=== PATIENT | female | born 1940 | race Caucasian/White ===

== ENCOUNTER 2020-02-01 10:05 | Outpatient (CLI) | payer MEDICARE, SELFPAY ==
--- NOTE | 2020-02-01 10:20 | XR_ITS ---
WS: [id number] PROCEDURE: XR chest 2V* [id number] CLINICAL INFORMATION: COUGH COMPARISON: March 31, 2017 FINDINGS: Heart: Normal cardiac silhouette. Sternotomy. Lungs: Moderate chronic emphysematous changes. No acute pulmonary infiltrates. No pleural fluid. Bones: Mild thoracic kyphosis. Hypertrophic changes thoracic spine. XR/XR chest 2V* [id number] IMPRESSION: 1. Moderate chronic emphysematous changes. 2. No acute pulmonary infiltrates. 3. No acute chest findings.
== END 2020-02-01 10:06 | disposition home or self-care (01) ==
PROVIDERS: Family Provider Nurse Practitioner Family; PCP Nurse Practitioner Family; Visit Provider Nurse Practitioner Family
DX: R05 Cough (principal)
CPT/HCPCS: 71046

== ENCOUNTER 2020-03-24 07:57 | Outpatient (CLI) | payer MEDICARE, SELFPAY ==
--- NOTE | 2020-03-24 08:02 | CT_ITS ---
WS: [id number] CT CHEST TECHNIQUE: Contrast enhanced CT of the chest with coronal and sagittal reformatted images. CLINICAL INFORMATION: THYMOMA COMPARISON: CT , 9 , August 29, 2017. DLP: 597.[address] scans at [facility] use at least one of these dose optimization techniques: automat ed exposure control; mA and/or kV adjustment per patient size (includes targeted exams where dose is matched to clinical indication); or iterative reconstruction. FINDINGS: Postoperative changes sternotomy with thymoma resection. No evidence of residual or recurrent tumor. Mild chronic emphysematous changes. No acute pulmonary infiltrates. No focal consolidation. No pleura l fluid. Long-term stability of several right middle lobe subcentimeter nodules. No new suspicious pa renchymal abnormalities. Mild aortic calcification. Normal caliber thoracic aorta. Proximal main pulmonary arteries are normal . No mediastinal or hilar lymphadenopathy. Small esophageal hiatal hernia. Prior sternotomy. Prior po stoperative changes right thyroidectomy. Left thyroid nodule measuring 12 mm. No axillary lymphadenop athy. Adrenal glands are normal. Normal visualized thoracic spine. CT/CT chest w con* [id number] IMPRESSION: 1. Prior postoperative changes sternotomy with resection of the previously amelie cribed anterior superior mediastinal mass. No evidence of residual or recurrent disease. 2. Mild chronic emphysematous changes. No acute pulmonary infiltrates. 3. Prior right thyroidectomy. 4. Stable long-term stability of a few right middle lobe nodules. 5. Left thyroid nodule measuring 12 mm. This can be followed up with allan elias
[2020-03-24 08:59] LABS: Basophils # 0.1 10^3/uL (0.0-0.1); Basophils % 0.7 %; Eosinophils # 0.2 10^3/uL (0.0-0.8); Eosinophils % 1.9 %; Hematocrit 42.4 % (37.0-47.0); Hemoglobin 13.3 g/dL (11.5-15.3); Lymphocytes # 1.2 10^3/uL (0.8-4.8); Lymphocytes % 13.6 %; Mean Corpuscular HGB Conc 31.4 g/dL (30.0-36.0); Mean Corpuscular Hemoglobin 31.5 pg (28.0-34.0); Mean Corpuscular Volume 100.5 fL (81-99); Mean Platelet Volume 10.4 fL (7.4-10.4); Monocytes # 0.6 10^3/uL (0.2-0.9); Monocytes % 6.2 %; Neutrophils # 7.03 10^3/uL (1.8-7.7); Neutrophils % 77.3 %; Nucleated Red Blood Cells % 0 %; Platelet Count 200 10^3/cmm (130-400); Red Blood Count 4.22 10^6/uL (4.1-5.3); Red Cell Distribution Width 12.6 % (12.1-15.1); White Blood Count 9.1 10^3/uL (4.0-10.0)
[2020-03-24 09:10] LABS: Alanine Aminotransferase 13 U/L (0-33); Alkaline Phosphatase 87 IU/L (35-105); Anion Gap 16.1 (5-19); Aspartate Amino Transferase 15 U/L (0-32); Blood Urea Nitrogen 15 mg/dL (8-23); Calcium 9.6 mg/dL (8.5-10.5); Carbon Dioxide 26 mmol/L (22-29); Chloride 104 mmol/L (98-107); Globulin 2.7 g/dL (1.3-4.6); Glucose 126 mg/dL (65-115); Lactate Dehydrogenase 145 U/L (135-214); Osmolality Calculated 296 mOsm/kg (285-295); Potassium 4.1 mmol/L (3.5-5.1); Sodium 142 mmol/L (136-145); Total Bilirubin 0.8 mg/dL (0.15-1.2); Total Protein 6.7 g/dL (6.6-8.7)
[2020-03-24] MEDS: iodixanol 320 mg/mL 100mL Btl IV (09:53)
== END 2020-03-24 07:58 | disposition home or self-care (01) ==
LOC: CT 07:59
PROVIDERS: PCP Nurse Practitioner; Visit Provider Internal Medicine Medical Oncology
DX: C37 Malignant neoplasm of thymus (principal); E04.1 Nontoxic single thyroid nodule; E89.0 Postprocedural hypothyroidism
CPT/HCPCS: 71260; 80053; 83615; 85025

== ENCOUNTER 2020-03-24 11:43 | Emergency (ER) | payer MEDICARE, SELFPAY ==
[2020-03-24 11:49] VITALS: BP 176/88; PULSE 78; RESP 18; TEMP 36.3; O2SAT 95; BMI 36.6
--- NOTE | 2020-03-24 12:21 | XR_ITS ---
WS: [id number] Left hip, AP and frog-leg views, 03/24/2020 Clinical Data: left hip pain Comparison: Left hip, 02/24/2020. Findings: No fractures or dislocations are seen. The hip joint is intact. The soft tissues are not remarkable. The adjacent pelvis is normal. There is a small acetabular lip. Contrast material can be seen in the left ureter and the bladder fro m a recent CT chest. XR/XR hip LT 2-3V wo/w pel* [id number] Impression: Minimal osteoarthritis.
--- NOTE | 2020-03-24 12:21 | USCV_ITS ---
Nohelia Saxena Age: 79 Gender: F : 1940 Exam Date: 03/24/2020 12:40 Ordering Phys: Doretha Phillips MD [facility] [place] Technologist: Tung Rosales Exam Location: [facility] [place] Indication: LT LEG PAIN HISTORY: Lower extremity pain. PROCEDURES: Venous duplex imaging was performed in only the left lower extremity. The following venous structures were evaluated: common femoral vein, profunda vein, proximal portion of the greater saphenous vein, superficial femoral vein, and the popliteal vein. In addition, the posterior tibial and peroneal trunk were evaluated. On the left side, the common femoral, superficial femoral, profunda femoral, popliteal, posterior tibial, greater saphenous veins, and the peroneal trunk were identified and interrogated in the standard fashion. These veins were found to be easily compressible with spontaneous blood flow. No evidence of insufficiency or thrombus noted. FINDINGS: Normal 2-D Doppler and augmentation and compressibility throughout the lower extremity venous structures. Additional imaging through the proximal calf veins also reveals no thrombus. Limited evaluation of the greater saphenous vein is patent with no thrombus.. CONCLUSIONS No evidence of left lower extremity DVT. Silvano Rodríguez MD (Electronically Signed) Final Date: 24 March 2020 15:48 S
[2020-03-24] MEDS: ketorolac 30 mg/mL INJ IM (12:34)
[2020-03-24] MEDS: orphenadrine 30 mg/mL Inj 2 mL 60 MG IM (12:35)
--- NOTE | 2020-03-24 13:17 | ED_ITS ---
HPI - Extremity Problem General: Chief complaint: Extremity Problem,Nontraumatic Stated complaint: LEG PAIN Time Seen by Provider: 03/24/20 12:12 Source: patient Mode of arrival: ambulatory Limitations: no limitations History of Present Illness: HPI Narrative: She has been seen her primary care provider for the last 3 weeks also for left hip pain. She states that the pain has now progressed to involve the left thigh. She denies any falls or trauma. She denies that the pain is radiating, it is just moving. She has little pain in her hip now but most of the pain is in her anterior left thigh. She is here to be evaluated for this. MD Complaint: extremity pain and joint pain Onset (ago): week(s) (3) Pain Consistency: constant Location: left and lower extremity Quality: sharp Radiation: proximal Relieving factors: nothing Exacerbating factors: weight bearing Associated symptoms: Deny fever(s) or rash Review of Systems General: Reports: 10 or more systems reviewed and unremarkable except in HPI and below Const: Denies: fever(s), chills or body aches Eyes: Denies: change in vision or blurry vision ENMT: Denies: throat pain, enlarged tonsils, odynophagia, hoarseness, mouth pain or swelling of lips/tongue Card: Denies: palpitations, irregular heart rhythm, edema or swelling of feet/ankles Resp: Denies: dyspnea, productive cough or non-productive cough GI: Denies: abdominal pain, nausea or vomiting Musc: Denies: neck pain, back pain or extremity swelling Skin/Breast: Denies: rash, pruritus or erythema Neuro: Denies: headache(s), numbness in extremities or weakness in extremities Endo: Denies: polyuria, polydipsia or tired all the time Physical Exam Const: COMMON NORMALS: no acute distress, average body habitus, patient oriented x3, no limitations, healthy appearing, alert and well nourished Neck/C-Spine: COMMON NORMALS: no meningeal signs and no JVD Chest: COMMONS NORMALS: normal inspection of the chest and normal palpation of entire chest wall Resp: COMMON NORMALS: normal respiratory effort, No retractions, No use of accessory muscles, clear to auscultation bilaterally and percussion normal AUSCULTATION: clear to auscultation bilaterally PERCUSSION: percussion normal Cardio: COMMON NORMALS: no JVD, regular rate, regular rhythm, S1 normal heart sound present, S2 normal heart sound present, No gallops present (Cardio), No clicks present (Cardio), No murmurs present (Cardio), No rub (Cardio) and Peripheral pulses 2+ throughout RATE: regular rate RHYTHM: regular rhythm HEART SOUNDS: S1 normal heart sound present and S2 normal heart sound present PERIPHERAL PULSES: Peripheral pulses 2+ throughout GI: COMMON NORMALS: Normal to inspection, nondistended, normoactive bowel sounds present, Soft to palpation, non-tender, No hepatosplenomegaly present, no masses and no bruits PALPATION: Yes Soft to palpation and Yes No hepatosplenomegaly present Extremity: COMMON NORMALS: normal to inspection, full ROM, capillary refill normal, no calf tenderness and no pedal edema NARRATIVE EXTREMITY EXAM: She is tender in the left SI joint as well as the left anterior thigh. No bony tenderness. Neuro: COMMON NORMALS: patient oriented x3 SENSORIUM/ORIENTATION: Yes alert MENINGEAL SIGNS: Yes no meningeal signs Skin: COMMON NORMALS: no rashes or lesions noted, no wounds, turgor normal, no jaundice, no petechiae and no mottling GENERAL SKIN EXAM: no rashes or lesions noted and turgor normal Course Reevaluation(s): Reevaluation #1: Patient seen. She feels better after the injection of ketorolac and Norflex. Discussed her imaging findings with her, negative venous ultrasound and x-ray of her hip shows arthritis. We will manage as a case of sacroiliitis as she has very tender in her left SI joint. We will discharge her home with a prescription for oral steroids and a short course of pain medicine. She voiced understanding and is in agreement with the plan. Time: 14:07 Vital Signs: Vital signs: Vital Signs Temperature 97.3 F L 03/24/20 11:49 Pulse Rate 78 03/24/20 11:49 Respiratory Rate 18 03/24/20 11:49 Blood Pressure 176/88 03/24/20 11:49 Pulse Oximetry 95 03/24/20 11:49 MDM - Extremity (Nontraumatic) MDM Narrative: Medical decision making narrative: Patient with several week history of left hip pain that has now progressed left thigh pain. Evaluation in the emergency department is unremarkable including negative venous ultrasound and x-ray. Exam is consistent with sacroiliitis. She is discharged home with oral steroids and pain medicine. Differential Diagnosis: Extremity Problem Differential Diagnosis: Likely deep venous thrombosis of upper extremity Medical Records: Attestation: I reviewed the patient's medical records. Imaging Data^: Xray Ortho: Radiologist's impression: [address] [place] [address] XRay Report Signed Patient: Nohelia Saxena #: [id number] : 1940Acct#:[id number] Age/Sex: 79 / FADM Date: 03/24/20 Loc: ERRoom/Bed: Attending Dr: Ordering Provider/Ordering MD: Doretha Phillips MD, [facility] [place] Date of Service: 03/24/20 Procedure(s): XR hip LT 2-3V wo/w pel* [id number] Accession Number(s): [id number] Report Number: [id number] WS: [id number] Left hip, AP and frog-leg views, 03/24/2020 Clinical Data: left hip pain Comparison: Left hip, 02/24/2020. Findings: No fractures or dislocations are seen. The hip joint is intact. The soft tissues are not remarkable. The adjacent pelvis is normal. There is a small acetabular lip. Contrast material can be seen in the left ureter and the bladder from a recent CT chest. XR/XR hip LT 2-3V wo/w pel* [id number] Impression: Minimal osteoarthritis. Dictated By:Bridget Ladd MD Signed By:Bridget Ladd MDSigned Date/Time:03/24/20 1355 DD/ 1354 Discharge Plan Discharge Patient Disposition: Home Clinical Impression: Sacroiliitis Condition: Stable Prescriptions: New prednisone 20 mg tablet 20 mg PO DAILY 5 Days Qty: 5 RF: 0 tramadol 50 mg tablet 50 mg PO Q8H PRN (Reason: Sacroiliitis) Qty: 12 RF: 0 Discharge Orders: Discharge Order (Routine); Ordered 03/24/20 Ordered By: Doretha Phillips Referrals: Estefany Zelaya FNP [Primary Care Provider] - 4-7 days Discharge Diet: Usual diet Discharge Activity: Increase activity as tolerated Patient Instructions: Sacroiliitis (ED) Activity Restrictions/Additional Instructions: Return for any new or worsening symptoms. Take the pain medicine as needed for pain. Take the steroids as prescribed. Follow-up with your primary care provider within 1 week. 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
== END 2020-03-24 14:24 | disposition home or self-care (01) ==
PROVIDERS: Emergency Provider Family Medicine; PCP Nurse Practitioner
DX: M46.1 Sacroiliitis, not elsewhere classified (principal)
CPT/HCPCS: 12345; 73502; 93971; 96372; 99281; 99283; J1885; J2360

== ENCOUNTER 2020-03-28 08:46 | Outpatient (CLI) | payer MEDICARE, SELFPAY ==
--- NOTE | 2020-03-29 15:14 | ONC FU_ITS ---
Dr. Moise Patient Follow-Up Note Patient: Nohelia Saxena Unit #: [id number]: 1940 Dicatated By: Greyson Moise M.D.Date of Visit:Mar 28, 2020 Onc Med Follow-up/Prog Note Chief Complaint: Thymoma. 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 She had presented to Dr. Redman after her son told her that she was breathing hard. She wasn't really aware of it, and she thought she was feeling pretty good. However, she was found on chest CT in August 2014 to have a mass in the anterior/superior mediastinum to the left of the midline measuring 3.1 x 2.2 x 2.2 cm. The posterior margin of the mass was closely adjacent to the anterior/superior margin of the main pulmonary outflow tract. There was no associated mediastinal, hilar, axillary or supraclavicular adenopathy. Threee small nodules within the middle lobe of the right lung were noted to be stable compared to a study from October 2011. There was evidence of a healed sternal body fracture and additional healed fracture of the right fifth rib origin. There was no evidence of metastatic disease. She had further evaluation with PET/CT on 10/02/14. That study showed a multilobulated mass in the left-sided the anterior mediastinum with maximum dimension of 1.7 cm an SUV 3.2. There was no associated adenopathy. A sclerotic area in the upper body the sternum was FDG negative. There was a 2 cm hypoattenuating nodule in the right lobe of the thyroid with SUV 3.2. A thyroid ultrasound on 10/15/14 confirmed a 2.1 cm right thyroid nodule. Fine-needle aspiration biopsy was nondiagnostic. She was referred to Dr. Sun. She underwent a left-sided [place] procedure with biopsy of the mediastinal mass on 11/03/2014. Pathology was consistent with thymoma, type B-2 (cortical). I had seen her initially on 11/19/2014. There appeared to be no definite indication for further treatment, and we opted to just monitor her on observation. Her follow-up chest CT on 10/27/2015 showed continued slow increase in the size of the mediastinal mass, at that point measuring 3.4 x 3.2 x 2.8 cm. As of her CT on 12/11/2016, it had further increased to 4.9 x 4.2 x 2.9 cm. On 03/29/2017 she underwent sternotomy with resection of thymus gland including the anterior superior mediastinal tumor. Mass was noted to be adherent to the pericardium overlying the pulmonary artery. The pulmonary artery itself was not involved, but dissection laterally revealed that the lesion extended very intermittently towards the left phrenic nerve, though without actual involvement of the nerve. Dissection was continued as close to the nerve as possible, but it was felt that the tumor was not completely resected. The pathology report described a well delineated smooth and soft nodule in the left upper pole measuring 4.1 x 3.5 x 3.0 cm. Inferior to the mass was a piece of bone measuring 4 x 1.8 x 0.6 cm in medial to the mass in the upper border of the midportion of the specimen was an area of induration measuring 3.5 x 3 x 2 cm. The report further describes the remaining specimen showing a soft pérez tumorous nodule grossly measuring 8.5 x 2.7 x 5.5 cm and grossly extending to the inked edge of sections. The final interpretation was that of a type B2 thymoma with thymoma extending to the inked edges of resection. 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 There was no obvious extension to the inked surface of the superior margin of resection. Because of the involved resection margin, she was given postoperative radiation to the mediastinum. She completed treatment on 07/09/2017 to a total dose of 5400 cGy. She tolerated the treatment well. Her other medical illnesses include hypertension, hyperlipidemia, GERD, and idiopathic peripheral neuropathy. She also has a history of asthma. She is a nonsmoker. INTERIM HISTORY: Surveillance chest CT on 03/06/2018 showed no evidence for recurrent mediastinal mass. Postoperative changes in the anterior mediastinum appeared stable. There is no adenopathy noted. Subcentimeter nodules in the right middle lobe showed long-term stability. Repeat chest CT on 03/13/2019 showed mild pneumonitis in the anteromedial aspect of the left upper lobe adjacent to the postoperative site. There was no evidence of residual or recurrent tumor. Right middle lobe nodules showed long-term stability. She continued on observation/expectant management. Her surveillance chest CT on 03/24/2020 showed no evidence of residual or recurrent disease. There was long-term stability of a few right middle lobe nodules. A left thyroid nodule measuring 12 mm also was noted. She is seen for a follow-up visit. She has been feeling pretty good until about a month ago when she began having pain in the sacroiliac area on the left side. She was treated with prednisone, but without much improvement. She was seen in the emergency room on 03/24/2020 and an x-ray of the left hip showed just mild osteoarthritis. She restarted prednisone 20 mg daily along with tramadol as needed. She still is having pain in the left hip area which is now going down to her left knee. It is significant enough that she has trouble standing or walking. It is limiting her activity very significantly. Her ECOG score is 3. Her appetite has been poor, and she recently has lost weight. She has some shortness of breath associated with COPD. She does not complain of cough and she has not been having chest pain. She occasionally has nausea. She had been having a little bit of red blood in the stool, but that resolved with some topical therapy. She has no complaints. She has no other joint or bone pain. She has no focal neurologic symptoms. Medications: Advair Diskus 1 (250-50 mcg/dose) Aerosol Powder, Breath Activated Inhalation b.i.d., Albuterol Sulfate 1 ((2.5 mg/3ml) 0.083%) Nebulization solution Inhalation q 6 hours PRN, Alendronate Sodium 1 (70 mg) Tablet Oral q 7 days, Alpha Lipoic Acid 1 Capsule (of 200 mg) Oral t.i.d., Atorvastatin Calcium 1 Tablet (of 40 mg) Oral at bedtime, Azelastine HCl 1 spray(s) (of 0.1 %) Solution Nasal b.i.d., Biotin 1 (5000 mcg) Capsule Oral b.i.d., Cetirizine HCl 1 (10 mg) Tablet Oral daily, Co Q 10 1 Capsule (of 100 mg) Oral at bedtime, Eliquis 1 (5 mg) Tablet Oral b.i.d., Hydrocodone-Acetaminophen 1 Tablet (of 7.5-325 mg) Oral q 6 hours PRN, Ipratropium [place] 1 (0.03 %) Solution Nasal t.i.d., Levocetirizine Dihydrochloride 1 Tablet (of 5 mg) Oral at bedtime, Metoprolol Tartrate 1 (50 mg) Tablet Oral b.i.d., Mirtazapine 1 (15 mg) Tablet Oral daily, Omeprazole 1 Capsule (of 40 mg) Capsule Delayed Release Oral b.i.d., Pantoprazole Sodium 1 Tablet (of 40 mg) Tablet, enteric coated Oral daily, [place] 1 Drop(s) (of 0.7 %) Solution Ophthalmic daily, PreserVision AREDS 2 1 Capsule Oral daily, ProAir HFA 1 - 2 (108 (90 base) mcg/act) Aerosol, solution Inhalation four times a day PRN, QUEtiapine Fumarate 1 Tablet (of 100 mg) Oral daily, Spironolactone 0.5 Tablet (of 25 mg) Oral daily, Symbicort 1 puff(s) (of 80-4.5 mcg/act) Aerosol Inhalation b.i.d., traMADol HCl 1 Tablet (of 50 mg) Oral q 8 hours, Triamcinolone Acetonide 1 (0.1 %) Cream Topical b.i.d. Allergies: No Known Allergies. Review of Systems: Constitutional - Her energy is low and she does not feel well. She has significant activity restriction related to pain. Her appetite is very poor, this stated about 4-5 days ago. Her weight is down 9 pounds from last visit. No fever, night sweats, or hot flashes. ECOG score is 3, ENMT - No sinus congestion/drainage. No mouth sores. No sore throat or difficulty swallowing, Hematologic/Lymphatic - She bruises easily, Respiratory - She gets short of breath with activity. No cough. No pleuritic pain or hemoptysis, Cardiovascular - No angina pain. No palpitations, Gastrointestinal - She has occasional nausea. No vomiting. No heartburn or acid reflux. No diarrhea or constipation. No blood in the stool or black stools, Genitourinary (F) - No dysuria or hematuria. No urinary frequency. No urgency or incontinence, Musculoskeletal - She is having a significant amount of hip pain. This first occurred about a month ago. The pain originated in the left hip and has radiated down into knee. She is taking Hydrocodone-APAP 7.5-325 mg, which she feels helps a little. She was given Prednisone in the ER for the pain which she feels helped, Integumentary - No skin complications, Neurologic - No headache. She occasionally has dizziness. No numbness or tingling. No other focal neurologic symptoms, Psychiatric - She has alot of anxiety. No depression. No insomnia. Vital Signs: Performed on Mar 28, 2020 09:15 Height - 66.00 in Weight - 197.8 lbs (LOW) BSA - 1.99 sq.m BMI - 31.93 (HIGH) Temperature - 97.8 F (LOW) Pulse - 69 /min Respiration - 24 /min BP - 196/80 mm(hg) (HIGH) O2 Sat - 96 % Pain - 9 Physical Examination: Constitutional - She looks pretty good generally, Eyes - Sclerae nonicteric. Conjunctivae clear, ENMT - No lesions noted in the oral cavity, Hematologic/Lymphatic - No cervical, clavicular, or axillary adenopathy, Respiratory - Lungs sound clear, Cardiovascular - Heart rhythm is regular. There is a II/ systolic murmur. There is no gallop or rub noted, Abdomen - Soft. Liver and spleen are not enlarged. There is no abdominal mass or ascites noted and there is no inguinal adenopathy, Extremities - No edema, Musculoskeletal - There is tenderness in the area of the SI joint on the left side, Neurologic - There are appears to be some proximal weakness in the left leg. Lab/Imaging: Test performed on Mar 24, 2020 08:40 LDH (Total) 145 U/L Sodium 142 mmol/L Potassium 4.1 mmol/L Chloride 104 mmol/L CO2 26 mmol/L Anion Gap 16.1 BUN 15 mg/dL Creatinine 1.0 mg/dL Cr Clearance (Est) 66.1900 mL/min Glucose 126 mg/dL Osmolality - Calculated 296 mOsm/kg Calcium 9.6 mg/dL Protein, Total 6.7 g/dL Albumin 4.0 g/dL Globulin 2.7 g/dL Bilirubin, Total 0.8 mg/dL ALT (SGPT) 13 U/L AST (SGOT) 15 U/L Alkaline Phosphatase 87 IU/L WBC 9.1 10 3/uL RBC 4.22 10 6/uL HGB 13.3 g/dL HCT 42.4 % MCV 100.5 fL MCH 31.5 pg MCHC 31.4 g/dL RDW 12.6 % Platelet Count 200 10 3/cmm MPV 10.4 fL Neutrophils 7.03 10 3/uL Lymphocytes 1.2 10 3/uL Monocytes 0.6 10 3/uL Eosinophils 0.2 10 3/uL Basophils 0.1 10 3/uL Neutrophil % 77.3 % Lymphocyte % 13.6 % Monocyte % 6.2 % Eosinophil % 1.9 % Basophils % 0.7 % NRBC % 0 % Impression: 1. Patient with mediastinal mass, confirmed by biopsy on 11/03/2014 to be a type B-2 (cortical) thymoma. 2. She underwent sternotomy with resection of thymus gland including anterior superior mediastinal tumor on 03/29/2017. Pathology was again consistent with a type B2 thymoma, but with positive surgical margin, apparently in the area where the tumor was approaching the phrenic nerve. 3. She was given postoperative radiation to the mediastinum, completed on 07/09/2017 to a total dose of 5400 cGy. Her other medical illnesses include: 4. Hypertension. 5. Hyperlipidemia. 6. GERD. 7. History of asthma. 8. Idiopathic peripheral neuropathy. She had a good recovery following her surgery, and she tolerated the radiation very well. During follow-up she continued to have somewhat marginal performance status, but there was no evidence of recurrence of the thymoma. Her current chest CT scan still shows no evidence of recurrence of thymoma. There is a new left thyroid nodule which may require additional evaluation. She also now has developed very significant pain in the left sacroiliac area. Plan: Due to the severity of her pain and the associated tenderness in the left SI joint area, I am going to schedule her for bone scan, and she will have further evaluation for that as indicated. Ultimately, she may need to be evaluated at the orthopedic clinic. However, she does not require any more routine surveillance for the thymoma. She can continue her regular follow-up with Estefany Zelaya and I also will leave any further evaluation for the thyroid nodule to her discretion. I will plan to see her again only as needed. Signed By: Greyson Moise M.D. <<Signature on File>>
== END 2020-03-28 08:47 | disposition home or self-care (01) ==
LOC: ONCMED 08:51
PROVIDERS: PCP Nurse Practitioner; Visit Provider Internal Medicine Medical Oncology
DX: Z08 Encounter for follow-up examination after completed treatment for malignant neoplasm (principal); Z85.238 Personal history of other malignant neoplasm of thymus; M53.3 Sacrococcygeal disorders, not elsewhere classified; I10 Essential (primary) hypertension; E78.5 Hyperlipidemia, unspecified; K21.9 Gastro-esophageal reflux disease without esophagitis; J45.909 Unspecified asthma, uncomplicated; G62.9 Polyneuropathy, unspecified; Z92.3 Personal history of irradiation
CPT/HCPCS: 99214

== ENCOUNTER 2020-04-13 08:40 | Outpatient (CLI) | payer MEDICARE, SELFPAY ==
--- NOTE | 2020-04-13 08:45 | NM_ITS ---
WS: [id number] NUCLEAR MEDICINE WHOLE BODY BONE SCAN HISTORY: PAIN LEFT HIP DOWN TO LEFT KNEE COMPARISON: Radiographs 03/24/2020 TECHNIQUE: The patient was injected with 25.1 mCi of Technetium 99m HDP and serial whole-body scintig dai have been performed with anterior and posterior images. Additional imaging over the pelvis, skul l and cervical spine. Near symmetric appearance to the hips and pelvis. There is very slight increased uptake in the medial LEFT acetabulum which may be arthritic in etiology. This is only a slight increased uptake. SI joint s are symmetric bilaterally. There are focal areas of increased uptake within the thoracic spine at t he facet joints. I favor all these findings are related to arthritis. Mild bilateral SI joint arthros is. Very minimal uptake within the endplate of what is probably L3. Normal soft tissue uptake in the kidneys. NM/NM bone scan whole body* [id number] IMPRESSION: 1. Multifocal areas of slight uptake throughout the bony skeleton probably all related to arthritis. 2. No evidence for metastatic disease.
== END 2020-04-13 08:41 | disposition home or self-care (01) ==
LOC: NM 08:42
PROVIDERS: PCP Nurse Practitioner; Visit Provider Internal Medicine Medical Oncology
DX: M25.552 Pain in left hip (principal); M25.562 Pain in left knee
CPT/HCPCS: 78306; A9561

== ENCOUNTER 2020-05-03 12:42 | Outpatient (CLI) | payer MEDICARE, MEDICAID, SELFPAY ==
--- NOTE | 2020-05-03 13:00 | MR_ITS ---
WS: [id number] MRI LUMBAR SPINE NONCONTRAST TECHNIQUE: Sagittal T1, T2 and STIR imaging. Axial T1 and T2 imaging. CLINICAL INFORMATION: M48.062 Spinal stenosis, lumbar region with neurogenic cl... COMPARISON: MRI and 02/02 2013 FINDINGS: Mild lumbar curve. No acute compression. Slight retrolisthesis L2 on L3 and L3 on L4. Large disc extrusion L3-4 with cephalad migration of disc material posterior to the L3 vertebral body and filling of the left subarticular recess. This is new since 2012. See below for additional detail . L1-L2: Mild annular bulging. Slight effacement of ventral thecal sac. Mild facet arthropathy. Spinal canal and foramen are patent. L2-L3: Mild disc bulging with mild central canal stenosis. Moderate facet arthropathy. Foramen are pa tent. L3-L4: Extruded disc material extending posterior to the L3 vertebral body eccentric to the left. Thi s appears partially calcified and measures approximately 2.2 x 0.7 cm. Moderate to severe central can al stenosis with left to right mass effect on the thecal sac. Severe left foraminal narrowing impinge s the proximal exiting left L3 nerve root. Mild right foraminal narrowing. Moderate facet arthropathy . L4-L5: Mild disc bulging with osteophytic ridging. Prior laminectomy defects. Mild residual central c anal stenosis with moderate facet arthropathy. Narrowing of the subarticular recess bilaterally. Mild right and no significant left foraminal narrowing. L5-S1: Minimal disc bulging. Spinal canal is patent. Slight narrowing of the subarticular recess. Mod erate facet arthropathy. Foramen are patent. Visualized pelvic bony structures: Normal. Paravertebral soft tissues: Normal. MR/MR lumbar spine wo con* [id number] IMPRESSION: 1. Mild lumbar curve. No acute compression. Slight retrolisthesis L2 on L3 and L3 on L4. 2. Large partially calcified disc extrusion L3-4 with migration posterior to t he L3 vertebral body eccentric to the left. This results in moderate to severe central canal stenosis with left to right mass effect on the thecal sac. Severe left foraminal narrowing. 3. Remote appearing laminectomy defects L3-4 and L4-5. 4. Mild central canal stenosis L2-3. 5. Moderate to advanced facet arthropathy L4-L5 and L5-S1.
== END 2020-05-03 12:43 | disposition home or self-care (01) ==
LOC: RADSHAW 12:47
PROVIDERS: PCP Nurse Practitioner; Visit Provider Orthopaedic Surgery
DX: M48.062 Spinal stenosis, lumbar region with neurogenic claudication (principal); M47.816 Spondylosis without myelopathy or radiculopathy, lumbar region; M47.817 Spondylosis without myelopathy or radiculopathy, lumbosacral region; M48.061 Spinal stenosis, lumbar region without neurogenic claudication; M96.1 Postlaminectomy syndrome, not elsewhere classified; M51.26 Other intervertebral disc displacement, lumbar region
CPT/HCPCS: 72148

== ENCOUNTER → 2020-05-06 09:48 | Outpatient (BNVA) | payer MEDICARE, MEDICAID, SELFPAY | PROVIDERS: PCP Nurse Practitioner; Visit Provider Orthopaedic Surgery | DX: M48.062 Spinal stenosis, lumbar region with neurogenic claudication (principal) | CPT/HCPCS: 72100; 72114 ==

== ENCOUNTER → 2020-05-25 08:21 | Outpatient (BNVA) | payer MEDICARE, MEDICAID, SELFPAY | PROVIDERS: PCP Nurse Practitioner; Visit Provider Anesthesiology Pain Medicine | DX: M48.062 Spinal stenosis, lumbar region with neurogenic claudication (principal); M51.16 Intervertebral disc disorders with radiculopathy, lumbar region | CPT/HCPCS: 99204 ==

== ENCOUNTER → 2020-06-20 15:53 | Outpatient (BNVA) | payer MEDICARE, MEDICAID, SELFPAY | PROVIDERS: PCP Nurse Practitioner; Visit Provider Orthopaedic Surgery | DX: Z20.828 Contact with and (suspected) exposure to other viral communicable diseases (principal) | CPT/HCPCS: 87635 ==

== ENCOUNTER 2020-06-27 07:38 | Day surgery (SDC) | payer MEDICARE, MEDICAID, SELFPAY ==
[2020-06-23 09:05] VITALS: BMI 32.4
[2020-06-27] VITALS (10 sets, daily range): BP systolic 122–152; BP diastolic 63–85; PULSE 64–76; RESP 12–20; TEMP 36.2–37.1; O2SAT 95–100
--- NOTE | 2020-06-27 | SCC_ITS ---
Procedure Done: L3/4 laminectomy and partial facetectomy on the left 23.4 seconds of fluoroscopic guidance, for a cumulative dose of 11.86 mGy, was provided to Dr. Maya by the radiology department. C-arm images of the lumbar spine were saved for the patient's permanent record. [facility] HOSPITALEleuterio
--- NOTE | 2020-06-27 | XR_ITS ---
WS: [id number] INTRAOPERATIVE TECHNIQUE: 2 Spot fluoroscopic images for intraoperative purposes. FLUOROSCOPY TIME: 14.7 seconds CLINICAL INFORMATION: L 3/4 DISECTOMY, OR PICS COMPARISON: None. FINDINGS: Dorsal spinal marker at the L3-4 level. Images obtained for intraoperative purposes. XR/XR lumbar spine 2-3V* [id number] IMPRESSION: Images obtained for intraoperative purposes.
--- NOTE | 2020-06-27 08:17 | ECG_ITS ---
[facility] Test Date: 2020-06-27 Pat Name: Nohelia Saxena Department: Room: Gender: Female Copy Writer: : 1940 Requested By: Meir Tolbert Order Number: [id number] Rivas MD: Richard Orozco M.D. Measurements Intervals [place] Rate: 66 P: 43 VA: 210 QRS: -4 QRSD: 89 T: 39 QT: 399 QTc: 420 Interpretive Statements SINUS RHYTHM WITH FIRST DEGREE AV BLOCK Compared to ECG 01/26/2019 12:00:33 First degree AV block now present Sinus bradycardia no longer present Electronically Signed On 06-27-2020 13:05:19 PARTS REPRESENTATIVE by Richard Orozco M.D. [id number]
[2020-06-27] MEDS: sodium chloride 0.9% 1,000 ML 30 ML IV (08:33)
[2020-06-27] MEDS: gabapentin 300 mg Capsule PO (08:35)
--- NOTE | 2020-06-27 08:37 | ANES.PREANE2 ---
Pre-Anesthetic Assessment Pre-Anesthetic Assessment: Height/Weight: Height 1.65 m Weight 88.451 kg Temp Pulse Resp BP Pulse Ox 98.1 F 64 20 H 152/79 97 06/27/20 07:50 06/27/20 07:50 06/27/20 07:50 06/27/20 07:50 06/27/20 07:50 Preop Diagnosis: L3/4 diskectomy Proposed Procedure: Operation Date: 06/27/20 09:20 Proposed Procedures p left L 3/4 Discectomy 82759 M51.26(Left) - Leander Maya, DO Was Beta Cecy taken within 24 hours: Yes Last intake: Intake Last Liquid Date 06/26/20 Last Liquid Time 16:30 Last Solid Date 06/26/20 Last Solid Time 15:30 Social: Social History: No alcohol and No tobacco Exam: Pre-Anes Outpt Exam: alert, oriented x 3, clear to auscultation bilaterally and regular rate & rhythm Airway: Submandibular: WNL Cervical ROM: WNL MP: 2 Additional comments: Upper false Pulmonary: Pulmonary: Asthma CV/HEM: CV/HEM: HTN and None reported : : None reported Hepatic: Hepatic: None reported GI: GI: GERD Metabolic: Metabolic: Morbid obesity Musc/skel: Musc/skel: Lower Back Pain Neuropsych: Neuropsych: Neuropathy Anesthetic Plan: ASA status: 3 Anesthesia: General Risk of > 500 ml blood loss (7ml/kg in children): No Meds/Allergies Current Medications: Current Medications Generic Name Dose Route Start Last Admin Trade Name Freq PRN Reason Stop Dose Admin Sodium Chloride 1,000 mls @ 30 ml s/hr 06/27/20 08:00 06/27/20 08:33 Sodium Chloride 0.9% IV 06/28/20 07:59 30 mls/hr .Q24H ANTIONE Administration PFSH Anesthesia PFSH: Social History (Updated 05/25/20 @ 08:59 by Charley Dewey LPN) Smoking and tobacco status: never smoked Alcohol intake: never History of recent travel: No Data Anesthesia Cardiac Studies: No Data to Display
--- NOTE | 2020-06-27 08:48 | W.PM.OPSUD ---
Surgery/Procedure H&P Update DATE OF PROCEDURE: June 27, 2020 DATE H&P PERFORMED: 06/03/20 H&P UPDATE INFORMATION: I have examined patient prior to procedure PREOP DIAGNOSIS: L3/4 diskectomy PLANNED PROCEDURE: Operation Date: 06/27/20 09:20 Proposed Procedures p left L 3/4 Discectomy 28618 M51.26(Left) - Leander Maya DO
--- NOTE | 2020-06-27 10:34 | P.OP_ITS ---
Operative Report Date of procedure: June 27, 2020 Pre-op Diagnosis: L3/4 diskectomy Post-op diagnosis: same Procedure Done: L3/4 laminectomy and partial facetectomy on the left Anesthesia: General Condition: stable Disposition: PACU Procedure: Patient was brought to the operative suite placed in the prone position after undergoing anesthesia all areas impingement were well-padded. Patient was prepped and draped normal sterile fashion. Skin was was made over the L3-4 level was confirmed with C-arm guidance. Dilators were passed and retractor was docked on the L3 lamina. Laminectomy was performed using high- speed bur of L3. Medial aspect of the facet joint was taken down as well. The ligament flavum was singly scarred down to the dura. There is a small dural leak occurred trying to peel the ligamentum flavum off of the dura. The lateral recess was opened up. The ligament flavum and scar tissue or simply scarred down to the dura and the disc. At this point I elected to not do the discectomy because it was likely is going to get into the dura significantly and cause significant damage. At this point I felt like the nerve was decompressed. By taking down the lamina as well as the facet joint. A piece of DuraGen was then placed over the dural leak. And DuraSeal was used over this. Wounds were closed with 0 Vicryl 2-0 Vicryl and glue in a layered fashion. Patient was transferred to the PACU in stable condition.
--- NOTE | 2020-06-27 11:04 | ANE.PACU2 ---
Inpatient post-anesthesia follow up: Airway intact: Yes Vital signs: Temperature 97.2 F Pulse Rate 65 Respiratory Rate 14 Blood Pressure 140/63 Pulse Oximetry 100 Oxygen Delivery Me thod Simple Mask Oxygen Flow Rate 6 Fraction of Inspir ed Oxygen Hydration adequate: Yes Nausea and vomiting: No Pain level: 3 Additional Comments: sedate
== END 2020-06-27 13:00 | disposition home or self-care (01) ==
PROVIDERS: PCP Nurse Practitioner; Visit Provider Orthopaedic Surgery
PROC: (CPT 63047; principal; 2020-06-27 09:20)
DX: M51.26 Other intervertebral disc displacement, lumbar region (principal); J45.909 Unspecified asthma, uncomplicated; I10 Essential (primary) hypertension; K21.9 Gastro-esophageal reflux disease without esophagitis; E66.01 Morbid (severe) obesity due to excess calories; Z68.32 Body mass index [BMI] 32.0-32.9, adult
CPT/HCPCS: 63047; 12345; 72100; 76000; 93005; J0690; J1100; J2405; J3010; J7030

== ENCOUNTER 2020-06-30 10:16 | Emergency (ER) | payer MEDICARE, MEDICAID, SELFPAY ==
[2020-06-30 10:20] VITALS: BP 135/76; PULSE 104; RESP 22; TEMP 37.2; O2SAT 93; BMI 32.4
[2020-06-30 10:35] VITALS: PULSE 103
--- NOTE | 2020-06-30 10:39 | CT_ITS ---
WS: [id number] CT LUMBAR SPINE TECHNIQUE: Noncontrast CT of the lumbar spine with coronal and sagittal reformatted images. CLINICAL INFORMATION: low back pain radiating to LE bilaterally COMPARISON: MRI May 03, 2020 DLP: 2197.[address] scans at [facility] use at least one of these dose optimization techniques: automat ed exposure control; mA and/or kV adjustment per patient size (includes targeted exams where dose is matched to clinical indication); or iterative reconstruction. FINDINGS: Mild lumbar curve. No acute compression. Left hemilaminectomy L3-4. This is new from the prior MRI. P rior chronic laminectomies L4-L5 and L5-S1. Slight retrolisthesis L2 on L3 and L3 on L4. Slight anter olisthesis L4 on L5. Epidural subdural blood products/fluid within the dorsal epidural space extending from L1 to L3 resul ts in central canal stenosis described below. L1-L2: Mild disc bulging. Mild central canal stenosis. Dorsal epidural blood products or edema appear s contributory to stenosis. L2-L3: Mild disc bulging with moderate to severe central canal stenosis. This is progressed from the prior MRI. This is difficult to further evaluate but appears to be due to dorsal epidural/subdural bl ood products or fluid. L3-L4: Postoperative changes left hemilaminectomy. Expected postoperative changes along the surgical tract. Mild left and no significant right foraminal narrowing. Mild residual narrowing of the thecal sac. Moderate facet arthropathy. Moderate to severe narrowing of the thecal sac posterior to the L3 v ertebral body above the laminectomy defects. L4-L5: Slight anterolisthesis. Mild annular bulging with mild central canal stenosis. Chronic laminec braeden defects. Moderate to advanced facet arthropathy. Foramen are patent. L5-S1: Mild annular bulging. Spinal canal and foramen are patent. Advanced facet arthropathy. Adrenal glands are normal. Visualized pelvic bony structures: Normal. Paravertebral soft tissues: Normal. CT/CT lumbar spine wo con* [id number] IMPRESSION: 1. Left hemilaminectomy L3-4 is new from the prior MRI. Spinal canal has been decompressed at this level. Mild residual central canal stenosis. Mild left for aminal narrowing at this level. 2. Suggestion of moderate to severe central canal stenosis posterior to L2, L2 -L3 and posterior to L3 difficult to further quantify on this examination but a ppears to be due to epidural/subdural fluid/blood products. Recommend further e valuation with MRI. Notified KENNA Pearson at 06/30/2020 12:20 PM.
--- NOTE | 2020-06-30 10:40 | W.ED.EXTPRO ---
HPI - Extremity Problem General: Chief complaint: Extremity Problem,Nontraumatic Stated complaint: LE PAIN S/P SURGERY AND FALL Time Seen by Provider: 06/30/20 10:31 History of Present Illness: HPI Narrative: Patient is an 79-year-old female comes to the ED with lower back pain that radiates down to both right and left lower extremities. Patient had a lumbar L3/4 diskectomy on Saturday, June 27. Surgery went well and she says that she was not having any pain or problems for the first 2 days following surgery. She states that on Saturday she started developing more severe pain that radiated down into both right and left lower extremities. Patient says she had a fall yesterday but denies any acute injury or change in pain after fall. Denies any head trauma or loss of consciousness. She says with her fall she sort of twisted down to the ground. Today she is having worsening pain. She says if she is laying her pain is about a 2 out of 10, but soon as she tries to move it is a 10 out of 10 pain. pain goes down into both her right and left legs. It is hard for her to walk with the pain going down the legs. She says she uses a walker at home to help her ambulate. Patient took 2 tabs of her hydrocodone 7.5 at around 9am this morning before she came to the ED. denies any weakness to lower extremities, numbness or tingling to lower extremities, pelvic anesthesia, bladder or bowel incontinence. Associated symptoms: Deny chest pain, fever(s) or rash Review of Systems Const: Denies: fever(s), chills or fatigue Eyes: Denies: change in vision or eye discomfort ENMT: Denies: throat pain, odynophagia, nasal discharge or nasal congestion Card: Denies: chest pain, palpitations, edema, swelling of feet/ankles, dyspnea on exertion or orthopnea Resp: Denies: dyspnea, productive cough or non-productive cough GI: Denies: abdominal pain, nausea, vomiting, diarrhea, constipation or hematochezia : Denies: flank pain, dysuria or hematuria Musc: Reports: back pain and extremity pain (Pain shooting down into both right and left legs.); Denies: neck pain or extremity swelling Skin/Breast: Denies: rash or new lesions Neuro: Denies: headache(s), numbness in extremities or weakness in extremities PFSH ED PFSH: Social History Smoking and tobacco status: never smoked Alcohol intake: never History of recent travel: No Physical Exam Const: COMMON NORMALS: patient oriented x3 and alert GENERAL APPEARANCE: cooperative and comfortable HENMT: COMMON NORMALS: normocephalic HEAD & SCALP: normocephalic MOUTH: Normal oral and palatal mucosa present THROAT: posterior oropharynx normal and uvula midline Neck/C-Spine: COMMON NORMALS: supple GENERAL: Yes normal visual inspection Resp: COMMON NORMALS: normal respiratory effort, No retractions, No use of accessory muscles and clear to auscultation bilaterally AUSCULTATION: clear to auscultation bilaterally Cardio: COMMON NORMALS: regular rate, regular rhythm, S1 normal heart sound present, S2 normal heart sound present, No gallops present (Cardio), No clicks present (Cardio), No murmurs present (Cardio) and Peripheral pulses 2+ throughout RATE: regular rate RHYTHM: regular rhythm HEART SOUNDS: S1 normal heart sound present and S2 normal heart sound present PERIPHERAL PULSES: Peripheral pulses 2+ throughout GI: COMMON NORMALS: Normal to inspection, nondistended, normoactive bowel sounds present, Soft to palpation, non-tender and no masses PALPATION: Yes Soft to palpation : COMMON NORMALS: Yes no CVA tenderness BLADDER/KIDNEY EXAM: Yes no CVA tenderness Back/Pelvis: COMMON NORMALS: no CVA tenderness Extremity: COMMON NORMALS: normal to inspection and no pedal edema Neuro: COMMON NORMALS: patient oriented x3 and moves all extremities SENSORIUM/ORIENTATION: Yes alert Skin: GENERAL SKIN EXAM: dry skin Course Consultations: Consultation #1: I contacted Dr. Maya the neurosurgeon who performed her lumbar procedure on Saturday. I told him about patient coming to the ED with acute pain and pain radiating down both right and left lower extremities. I told him about the CT of the lumbar spine findings. He recommended I put patient on a course of steroids and he will see patient in the clinic this coming Saturday. Time: 12:33 Vital Signs: Vital signs: Vital Signs Temperature 97.8 F 06/30/20 13:26 Pulse Rate 98 06/30/20 13:26 Respiratory Rate 18 06/30/20 13:26 Blood Pressure 111/65 06/30/20 13:26 Pulse Oximetry 96 06/30/20 13:26 MDM - Extremity (Nontraumatic) MDM Narrative: Medical decision making narrative: Patient is an 79-year-old female comes to the ED with lower back pain with radiating down both right and left lower extremities. Patient had lumbar surgery on Saturday, June [address] Maya. Patient is not having any cauda equina symptoms. Denies any reinjury. CT of the lumbar spine showed some moderate to severe central canal stenosis posterior to L2-L3. Left hemilaminectomy L3-4 is new from the prior MRI. Spinal canal has been decompressed. I contacted Dr. Maya and discussed patient case with him and told about CT findings. He recommended I put patient on a steroid and I could send her with some additional pain meds as needed. He told me to have patient contact his office and he will follow up with them this coming Saturday. I went and told patient about plan and they understood and agreed. Return ED precautions given. Imaging Data^: Other CT: Attestation: I personally reviewed and interpreted this imaging study as follows: Radiologist's impression: [address] [place] [address] CT Scan Report Signed Patient: Nohelia Saxena Unit #: [id number] : 1940 Age/Sex: 79 / F ADM Date: 06/30/20 Loc: ER Room/Bed: Attending Dr: Ordering Provider/Ordering MD: Davin Fisher Date of Service: 06/30/20 Procedure(s): CT lumbar spine wo con* [id number] Accession Number(s): [id number] Report Number: [id number] WS: [id number] CT LUMBAR SPINE TECHNIQUE: Noncontrast CT of the lumbar spine with coronal and sagittal reformatted images. CLINICAL INFORMATION: low back pain radiating to LE bilaterally COMPARISON: MRI May 03, 2020 DLP: 2197.[address] scans at [facility] use at least one of these dose optimization techniques: automated exposure control; mA and/or kV adjustment per patient size (includes targeted exams where dose is matched to clinical indication); or iterative reconstruction. FINDINGS: Mild lumbar curve. No acute compression. Left hemilaminectomy L3-4. This is new from the prior MRI. Prior chronic laminectomies L4-L5 and L5-S1. Slight retrolisthesis L2 on L3 and L3 on L4. Slight anterolisthesis L4 on L5. Epidural subdural blood products/fluid within the dorsal epidural space extending from L1 to L3 results in central canal stenosis described below. L1-L2: Mild disc bulging. Mild central canal stenosis. Dorsal epidural blood products or edema appears contributory to stenosis. L2-L3: Mild disc bulging with moderate to severe central canal stenosis. This is progressed from the prior MRI. This is difficult to further evaluate but appears to be due to dorsal epidural/subdural blood products or fluid. L3-L4: Postoperative changes left hemilaminectomy. Expected postoperative changes along the surgical tract. Mild left and no significant right foraminal narrowing. Mild residual narrowing of the thecal sac. Moderate facet arthropathy. Moderate to severe narrowing of the thecal sac posterior to the L3 vertebral body above the laminectomy defects. L4-L5: Slight anterolisthesis. Mild annular bulging with mild central canal stenosis. Chronic laminectomy defects. Moderate to advanced facet arthropathy. Foramen are patent. L5-S1: Mild annular bulging. Spinal canal and foramen are patent. Advanced facet arthropathy. Adrenal glands are normal. Visualized pelvic bony structures: Normal. Paravertebral soft tissues: Normal. CT/CT lumbar spine wo con* [id number] IMPRESSION: 1. Left hemilaminectomy L3-4 is new from the prior MRI. Spinal canal has been decompressed at this level. Mild residual central canal stenosis. Mild left foraminal narrowing at this level. 2. Suggestion of moderate to severe central canal stenosis posterior to L2, L2-L3 and posterior to L3 difficult to further quantify on this examination but appears to be due to epidural/subdural fluid/blood products. Recommend further evaluation with MRI. Notified KENNA Pearson at 06/30/2020 12:20 PM. Dictated By: Silvano Rodríguez MD Signed By: Silvano Rodríguez MD Signed Date/Time: 06/30/20 1220 DD/ 1201 Discharge Plan Discharge Patient Disposition: Home Clinical Impression: Lumbar radiculopathy Condition: Stable Prescriptions: New methylprednisolone 4 mg tablets,dose pack See Rx Instructions .ROUTE .COMPLEX Qty: 21 RF: 0 No Action alendronate 70 mg tablet 70 mg PO DAILY RF: 0 atorvastatin 40 mg tablet 40 mg PO DAILY RF: 0 levocetirizine 5 mg tablet 5 mg PO DAILY RF: 0 spironolactone 25 mg tablet 25 mg PO DAILY RF: 0 azelastine 137 mcg (0.1 %) aerosol,spray 2 spray intranasal BID RF: 0 fluticasone propion-salmeterol [Advair Diskus] 250-50 mcg/dose blister with device 1 inh inhalation BID RF: 0 albuterol sulfate [ProAir HFA] 90 mcg/actuation HFA aerosol inhaler 2 puff inhalation Q6H PRN (Reason: Dyspnea) RF: 0 Pazeo 0.7 % drops 1 drp ophthalmic (eye) QAM RF: 0 omeprazole 20 mg capsule,delayed release(DR/EC) 20 mg PO BID RF: 0 mirtazapine [Remeron] 15 mg tablet 15 mg PO DAILY RF: 0 quetiapine [Seroquel] 100 mg tablet 100 mg PO DAILY RF: 0 metoprolol succinate 50 mg tablet extended release 24 hr 50 mg PO BID RF: 0 gabapentin 300 mg capsule 300 mg PO BID RF: 0 ipratropium bromide 0.03 % Leigh,Non-Aerosol 2 spray INTRANASAL TID RF: 0 hydrocodone-acetaminophen 5-325 mg tablet 1 - 2 tab PO .Q4-6H Qty: 40 RF: 0 Discharge Orders: Discharge ED (Routine); Ordered 06/30/20 Ordered By: Davin Fisher Referrals: Estefany Zelaya FNP [Primary Care Provider] - Discharge Diet: Regular Discharge Activity: Limit activity as instructed Patient Instructions: Lumbar Radiculopathy (ED) Activity Restrictions/Additional Instructions: Follow-up with medical provider as directed. Contact Dr. Maya office today and set up an appointment to see him this coming Saturday. Rest and limit activity. take medications as prescribed. Return to the ER or your medical provider if condition worsens. Please read and understand discharge instructions. If any questions, please ask. Coding Level of Care Code ED [employer] Operations Engineer for Chg Fwd Exam Comprehensive
[2020-06-30] MEDS: dexamethasone 4 mg/mL INJ 10 MG IM (13:04)
[2020-06-30 13:26] VITALS: BP 111/65; PULSE 98; RESP 18; TEMP 36.6; O2SAT 96
== END 2020-06-30 13:34 | disposition home or self-care (01) ==
PROVIDERS: Emergency Provider Physician Assistant; PCP Nurse Practitioner
DX: M54.16 Radiculopathy, lumbar region (principal)
CPT/HCPCS: 12345; 72131; 96372; 99281; 99283; J1100

== ENCOUNTER 2022-04-06 13:13 | Outpatient (CLI) | payer MEDICARE, MEDICAID, SELFPAY ==
--- NOTE | 2022-04-06 13:27 | MR_ITS ---
WS: [id number] MRI BRAIN WITH HIGH-RESOLUTION IMAGING THROUGH THE INTERNAL AUDITORY CANALS WITHOUT AND WITH CONTRAST HISTORY: SENSORINEURAL HEARING Loss, bilateral COMPARISON: 04/12/2015 TECHNIQUE: Multiplanar, multisequence imaging is performed through the brain. Additional 3 mm imaging performed in multiple planes through the internal auditory canal. Postcontrast imaging with 20 ml's of MultiHance. No acute intracranial hemorrhage, midline shift, edema or mass effect. Mild volume loss and atrophy. There is extensive T2 and FLAIR signal hyperintensities throughout the white matter. Similar distribution and number as compared to the prior study. Ventricles and extra-axial spaces are normal. No inferior displacement of cerebellar tonsils. Clivus and pituitary gland are normal. Internal and external auditory canals: Unremarkable. Cranial nerves VII and VIII complexes: Unremarkable. No enhancement or mass. Cerebellopontine angles: Normal. Paranasal sinuses: Normal. Mastoid air cells: Normal. Calvarium and scalp: Normal. Visualized ramona of Arzola and dural venous sinuses demonstrate no abnormality. MR/MR iac's wo/w con* [id number] IMPRESSION: 1. No mass or abnormal enhancement the cerebellopontine angles or along the in ternal auditory canals. 2. Mild atrophy with extensive small vessel ischemic type changes. Only mild p rogression since 2014.
[2022-04-06] MEDS: gadobenate dimeglumine 20 mL vial IV (14:45)
== END 2022-04-06 13:14 | disposition home or self-care (01) ==
LOC: RAD 13:14
PROVIDERS: PCP Physician Assistant; Visit Provider Specialist
DX: H90.3 Sensorineural hearing loss, bilateral (principal); I67.82 Cerebral ischemia; G31.9 Degenerative disease of nervous system, unspecified
CPT/HCPCS: 70553

== ENCOUNTER 2022-09-18 11:34 | Outpatient (CLI) | payer MEDICARE, MEDICAID, SELFPAY ==
--- NOTE | 2022-09-18 11:54 | USCV_ITS ---
Nohelia Saxena Age: 81 Gender: F : 1940 Exam Date: 09/18/2022 12:11 Ordering Phys: Delores Roberson Technologist: JENNYFER Exam Location: [facility] [place] Indication: HYPERTENSION BP: 134 / 70 HR: 73 Rhythm: Sinus Technical Quality: Adequate MEASUREMENTS (Male / Female) Normal Values 2D ECHO LVOT Diameter 2.0 cm LV Ejection Fraction MOD 2C 65.5 % LV Ejection Fraction 2C AL 70.4 % LA Diameter 3.9 cm LA Width 3.7 cm LA Height 5.8 cm RA Width 2.9 cm RA Height 5.4 cm Aorta at Sinotubular Diameter 2.2 cm IVC Diameter 1.7 cm M-MODE Aortic Annulus Diameter 2.5 cm LA Ao Ratio MM 1.5 MV E Point Septal Separation 0.6 cm DOPPLER AV Peak Velocity 199.0 cm/s LVOT Peak Velocity 130.0 cm/s AV Area Cont Eq vti 2.0 cm squared AV Area Cont Eq pk 2.0 cm squared MV Peak Velocity 95.0 cm/s MV Area PHT 2.5 cm squared Mitral E to A Ratio 0.8 MV E' Velocity 42.5 cm/s Mitral E to MV E' Ratio 8.2 Mitral E to LV E' Lateral Ratio 7.2 Mitral E to LV E' Septal Ratio 9.4 TR Peak Velocity 222.3 cm/s TR Peak Gradient 19.8 mmHg TR Mean Velocity 213.7 cm/s TR Mean Gradient 19.2 mmHg TR Velocity Time Integral 89.9 cm TV Peak E Velocity 57.0 cm/s Right Atrial Pressure 3.0 mmHg Pulmonary Artery Systolic Pressu 22.8 mmHg PV Peak Velocity 114.0 cm/s RV Acceleration Time 0.1 s RV Ejection Time 0.3 s RV AcT/ET 0.3 FINDINGS Left Ventricle Left ventricle is normal. LV systolic function is normal with EF 60-65%. No regional wall motion abnormalities are seen. Grade 1 diastolic dysfunction Right Ventricle Normal in size and function Right Atrium Normal-sized Left Atrium Dilated Mitral Valve Structurally normal mitral valve.Mild mitral regurgitation Aortic Valve Aortic valve is thickened. Mild aortic stenosis with aortic valve area of 1.91cm2 with mean gradient across aortic valve of 10mmHg. Tricuspid Valve Mild tricuspid regurgitation. Pulmonary artery systolic pressure is normal Pulmonic Valve Not well visualized Pericardium Normal Aorta Normal in size IVC Appears to be normal CONCLUSIONS LV systolic function is normal with EF of 60-65% Grade 1 diastolic dysfunction Left atrial dilation Mitral regurgitation Mild aortic stenosis Mild tricuspid regurgitation Compared to prior echocardiogram from 2017, patient now has mild aortic stenosis. Richard Orozco MD (Electronically Signed) Final Date: 29 September 2022 09:11 S
== END 2022-09-18 11:35 | disposition home or self-care (01) ==
LOC: RAD 11:42
PROVIDERS: PCP Physician Assistant; Visit Provider Physician Assistant
DX: I10 Essential (primary) hypertension (principal); I08.3 Combined rheumatic disorders of mitral, aortic and tricuspid valves
CPT/HCPCS: 93306

== ENCOUNTER → 2023-02-28 08:45 | Outpatient (BNVA) | payer MEDICARE, MEDICAID, SELFPAY | PROVIDERS: PCP Physician Assistant; Visit Provider Podiatrist Foot & Ankle Surgery | DX: I73.9 Peripheral vascular disease, unspecified; L60.3 Nail dystrophy; R09.89 Other specified symptoms and signs involving the circulatory and respiratory systems | CPT/HCPCS: 11721; 99203 ==

== ENCOUNTER 2023-03-18 11:58 | Outpatient (CLI) | payer MEDICARE, MEDICAID, SELFPAY ==
--- NOTE | 2023-03-18 12:30 | USCV_ITS ---
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 No significant arterial obstruction, based on the above plan findings. Dr Devan Cook MD FAC (Electronically Signed) Final Date: 18 March 2023 19:56 S
== END 2023-03-18 11:59 | disposition home or self-care (01) ==
PROVIDERS: PCP Family Medicine; Visit Provider Podiatrist Foot & Ankle Surgery
DX: R09.89 Other specified symptoms and signs involving the circulatory and respiratory systems (principal)
CPT/HCPCS: 93922

== ENCOUNTER → 2023-04-04 09:36 | Outpatient (BNVA) | payer MEDICARE, MEDICAID, SELFPAY | PROVIDERS: PCP Family Medicine; Visit Provider Podiatrist Foot & Ankle Surgery | DX: L60.3 Nail dystrophy (principal); I73.9 Peripheral vascular disease, unspecified | CPT/HCPCS: 11750 ==

== ENCOUNTER → 2023-04-18 11:03 | Outpatient (BNVA) | payer MEDICARE, MEDICAID, SELFPAY | PROVIDERS: PCP Family Medicine; Visit Provider Podiatrist Foot & Ankle Surgery | DX: L60.0 Ingrowing nail (principal); L60.3 Nail dystrophy; I73.9 Peripheral vascular disease, unspecified | CPT/HCPCS: 11750; 99213 ==

== ENCOUNTER → 2023-05-09 10:24 | Outpatient (BNVA) | payer MEDICARE, MEDICAID, SELFPAY | PROVIDERS: PCP Family Medicine; Visit Provider Podiatrist Foot & Ankle Surgery | DX: I73.9 Peripheral vascular disease, unspecified (principal); Z98.890 Other specified postprocedural states | CPT/HCPCS: 99213 ==

== ENCOUNTER 2024-09-13 08:54 | Emergency (ER) | payer MEDICARE, MEDICAID, SELFPAY ==
[2024-09-13 09:12] VITALS: BP 142/108; PULSE 66; RESP 16; TEMP 36.7; O2SAT 96; BMI 36.6
--- NOTE | 2024-09-13 09:12 | XRR_ITS ---
PROCEDURE INFORMATION: Exam: XR Left Knee Exam date and time: 09/13/2024 10:10 AM Age: 83 years old Clinical indication: Injury or trauma; Fall; Blunt trauma; Knee; Left TECHNIQUE: Imaging protocol: Radiologic exam of the left knee. Views: 3 views. COMPARISON: NM bone scan whole body* [id number] 04/13/2020 8:45 AM FINDINGS: Bones/joints: Small patellar enthesophytes. Mdom-bq-yoxyqqhp medial compartment DJD and at most mild patellofemoral DJD. Small patellar enthesophytes. No acute fracture or dislocation Soft tissues: Normal. XR/XR knee LT 3V* [id number] IMPRESSION: No acute findings. See above
--- NOTE | 2024-09-13 09:12 | XRR_ITS ---
PROCEDURE INFORMATION: Exam: XR Right Knee Exam date and time: 09/13/2024 10:08 AM Age: 83 years old Clinical indication: Injury or trauma; Fall; Blunt trauma; Knee; Right TECHNIQUE: Imaging protocol: Radiologic exam of the right knee. Views: 3 views. COMPARISON: NM bone scan whole body* [id number] 04/13/2020 8:45 AM FINDINGS: Bones/joints: Doayhvsc-hc-xnwmrj medial compartment DJD and rtiv-mq-nyswbdtu patellofemoral DJD. Small patellar enthesophytes. No acute fracture or dislocation Soft tissues: Normal. XR/XR knee RT 3V* [id number] IMPRESSION: No acute findings. See above
--- NOTE | 2024-09-13 09:12 | CTR_ITS ---
PROCEDURE INFORMATION: Exam: CT Lumbar Spine Without Contrast Exam date and time: 09/13/2024 9:24 AM Age: 83 years old Clinical indication: Injury or trauma; Fall; Blunt trauma (contusions or hematomas); Prior surgery; Surgery date: 6+ months; Surgery type: Lumbar TECHNIQUE: Imaging protocol: Computed tomography of the lumbar spine without contrast. Radiation optimization: All CT scans at this facility use at least one of these dose optimization techniques: automated exposure control; mA and/or kV adjustment per patient size (includes targeted exams where dose is matched to clinical indication); or iterative reconstruction. COMPARISON: CT lumbar spine wo con* [id number] 06/30/2020 11:18 AM RADIATION DOSE METRICS: Total DLP (mGy-cm): 926.11 FINDINGS: Bones/joints: No acute fracture or listhesis. No pars defect. 6 mm retrolisthesis of L3 on L4 (previously measuring 4 mm retrolisthesis). Unchanged minimal grade 1 listhesis at L4-L5. Similar moderate loss of L2-L3 disc height and up to mild loss of remaining lumbar disc heights. Re-identified prominent intradiscal calcifications at T12-L1. Re-identified subcentimeter sclerotic density within the L2 endplate which may represent a bone island. Redemonstrated old small ununited fracture fragments adjacent to the inferior articulating processes of L3 and L4. Left L3 hemilaminectomy changes redemonstrated. Within limits of CT evaluation, the previously seen posterior epidural fluid/fluid collection with associated gas bubbles within the spinal canal spanning the L1-L3 levels is no longer present. At L5-S1, there is similar estimated mild bilateral foraminal stenosis and moderate spinal canal stenosis, secondary to a small posterior disc/osteophyte complex combined with severe facet/ligamentum flavum hypertrophy. At L4-L5, there is similar estimated moderate bilateral foraminal narrowing and estimated up to moderate/severe spinal canal stenosis, secondary to a small posterior disc/osteophyte complex combined with severe facet/ligamentum flavum hypertrophy. At L3-L4, there is effacement of the lateral recesses and estimated hgjdfirf-hd-gedgva spinal canal stenosis (improved in the interval), secondary to a isdb-lu-iluvnzdy posterior disc/osteophyte complex combined with up to severe facet/ligamentum flavum hypertrophy. At L2-L3, there is similar estimated mild bilateral foraminal narrowing with effacement of the lateral recesses and moderate spinal canal stenosis (improved in the interval); this is secondary to a eotl-sp-lrrkfkbx posterior disc/osteophyte complex combined with up to severe facet/ligamentum flavum hypertrophy. At L1-L2, there is similar mild bilateral foraminal narrowing secondary to small posterior disc/osteophyte complex combined with mild facet arthropathy Adrenal glands: Mild (1 cm) left adrenal nodularity and 1 cm right adrenal nodularity, both with low Hounsfield units suggestive of benign adenomas. Vasculature: Aortoiliac atheromatous calcifications, including notable involvement of the rmlyz-vzqmhgp-psry-left main renal artery ostia Soft tissues: Unremarkable. CT/CT lumbar spine wo con* [id number] IMPRESSION: 1. No acute fracture 2. Within limits of CT evaluation, the previously seen posterior epidural fluid/fluid collection with associated gas bubbles within the spinal canal spanning the L1-L3 levels is no longer present. Interval improvement in previously seen associated spinal canal stenoses spanning L1-L3. If there is clinical concern for residual epidural abscess, enhanced MRI would better evaluate 3. Lumbar spondylosis and postoperative changes as above, with note of interval worsening of L3-L4 discopathy and listhesis. COMMENTS: Consistent with the [employer]'s Incidental Findings Committee white paper (J Am Oseas Radiol 2017): For any incidental adrenal lesion greater than or equal to 1 cm but less than or equal to 4 cm classified in this report as benign, likely benign, or containing fat (including classification as an adenoma or myelolipoma), no follow-up imaging is recommended per consensus recommendations based on imaging criteria. Further lab evaluation could be pursued if warranted based on clinical findings.
--- NOTE | 2024-09-13 09:12 | XRR_ITS ---
PROCEDURE INFORMATION: Exam: XR Pelvis Exam date and time: 09/13/2024 10:12 AM Age: 83 years old Clinical indication: Injury or trauma; Fall; Blunt trauma (contusions or hematomas); Bilateral; Groin TECHNIQUE: Imaging protocol: Radiologic exam of the pelvis. Views: 1 or 2 view. COMPARISON: CR XR hip LT 2-3V wo/w pel* [id number] 03/24/2020 12:56 PM FINDINGS: Bones/joints: Partially imaged lower lumbar spondylosis. Zfdw-ix-eqkrzioc bilateral hip DJD. Mild deformities of the bilateral pubic bones suggest possible old healed fractures in this region. No acute fracture or dislocation Soft tissues: Unremarkable. Vasculature: Presumed phleboliths overlie the pelvis XR/XR pelvis 1-2V* [id number] IMPRESSION: No acute findings. See above
--- NOTE | 2024-09-13 09:29 | W.ED.EXTPRO ---
HPI - Extremity Problem General: Chief complaint: Extremity Injury, Lower Stated complaint: fell, pain in knees and back Time Seen by Provider: 09/13/24 09:03 Source: patient Mode of arrival: ambulatory Limitations: no limitations History of Present Illness: 83-year-old female who states that she is walked outside and missed a step and fell. States she landed on her back and bilateral knees she has bilateral knee pain along with low back pain she states most pain is in her back she rates that pain a 7 out of 10 does have a contusion to her leg but denies hitting her head denies head neck or facial pain. Associated symptoms: Deny chest pain, fever(s) or rash Related Data Home Medications ?Medication ?Instructions ?Recorded ?Confirmed albuterol sulfate 90 mcg/actuation 2 puff inhalation Q6H PRN Dyspnea 05/25/20 09/13/24 aerosol inhaler (ProAir HFA) alendronate 70 mg tablet 70 mg PO DAILY 05/25/20 09/13/24 atorvastatin 40 mg tablet 40 mg PO DAILY 05/25/20 09/13/24 azelastine 137 mcg (0.1 %) nasal 2 spray intranasal BID 05/25/20 09/13/24 spray fluticasone 250 mcg-salmeterol 50 1 inh inhalation BID 05/25/20 09/13/24 mcg/dose blistr powdr for inhalation (Advair Diskus) mirtazapine 15 mg tablet (Remeron) 15 mg PO DAILY 05/25/20 09/13/24 quetiapine 100 mg tablet (Seroquel) 100 mg PO DAILY 05/25/20 09/13/24 spironolactone 25 mg tablet 25 mg PO DAILY 05/25/20 09/13/24 memantine 10 mg tablet 10 mg PO BID 09/13/24 09/13/24 metoprolol tartrate 50 mg tablet 50 mg PO BID 09/13/24 09/13/24 pantoprazole 40 mg tablet,delayed 40 mg PO DAILY 09/13/24 09/13/24 release Allergies Allergy/AdvReac Type Severity Reaction Status Date / Time No Known Allergies Allergy Verified 05/09/23 10:49 Review of Systems Const: Denies: fever(s), chills, body aches or change in appetite Eyes: Denies: blurry vision or eye discomfort ENMT: Denies: throat pain or dental pain Card: Denies: chest pain Resp: Denies: dyspnea GI: Denies: abdominal pain, nausea, vomiting or diarrhea Musc: Reports: back pain and extremity pain; Denies: neck pain Skin/Breast: Denies: rash Neuro: Denies: headache(s) PFS ED PFSH: Social History Smoking and tobacco/nicotine status: never used tobacco/nicotine Alcohol intake: never Substance/Drug Use: never Physical Exam Const: COMMON NORMALS: no acute distress, patient oriented x3 and healthy appearing HENMT: COMMON NORMALS: normocephalic and atraumatic HEAD & SCALP: normocephalic and atraumatic Eye: COMMON NORMALS: Equal, round and reactive pupils present and conjunctivae normal CONJUNCTIVA: Yes conjunctivae normal PUPIL: Yes Equal, round and reactive pupils present Neck/C-Spine: COMMON NORMALS: full ROM and supple CERVICAL SPINE: No Cervical spine tenderness Chest: COMMONS NORMALS: normal inspection of the chest and normal palpation of entire chest wall Resp: COMMON NORMALS: normal respiratory effort Cardio: COMMON NORMALS: regular rate and regular rhythm RATE: regular rate RHYTHM: regular rhythm Back/Pelvis: OTHER: Tenderness over lumbar spine no step-off injury Extremity: COMMON NORMALS: normal to inspection and full ROM NARRATIVE EXTREMITY EXAM: Tenderness to bilateral knees no obvious deformities Neuro: COMMON NORMALS: patient oriented x3, moves all extremities and no focal motor deficits Psych: COMMON NORMALS: mental status grossly normal, Normal thought process present and cooperative THOUGHT PROCESS: Normal thought process present Skin: COMMON NORMALS: no rashes or lesions noted and no wounds GENERAL SKIN EXAM: no rashes or lesions noted Course Vital Signs: Vital signs: Vital Signs Temperature 98.0 F 09/13/24 09:12 Pulse Rate 60 09/13/24 11:11 Respiratory Rate 16 09/13/24 09:12 Blood Pressure 137/98 09/13/24 11:11 Pulse Oximetry 99 09/13/24 11:11 Oxygen Delivery Me thod Room Air 09/13/24 09:12 MDM - Extremity (Nontraumatic) Medical Decision Making Patient presents here with back knee pain from a fall likely contusion images here showed no fractures she is ambulatory she stable for discharge follow-up with PCP return if worsening Medical Records I reviewed the patient's medical records. Lab Data I reviewed the patient's lab results. Radiology Impressions Knee X-Ray 09/13/24 09:12 IMPRESSION: No acute findings. See above Lumbar Spine CT 09/13/24 09:12 IMPRESSION: 1. No acute fracture 2. Within limits of CT evaluation, the previously seen posterior epidural fluid/fluid collection with associated gas bubbles within the spinal canal spanning the L1-L3 levels is no longer present. Interval improvement in previously seen associated spinal canal stenoses spanning L1-L3. If there is clinical concern for residual epidural abscess, enhanced MRI would better evaluate 3. Lumbar spondylosis and postoperative changes as above, with note of interval worsening of L3-L4 discopathy and listhesis. COMMENTS: Consistent with the [employer]'s Incidental Findings Committee white paper (J Am Oseas Radiol 2017): For any incidental adrenal lesion greater than or equal to 1 cm but less than or equal to 4 cm classified in this report as benign, likely benign, or containing fat (including classification as an adenoma or myelolipoma), no follow-up imaging is recommended per consensus recommendations based on imaging criteria. Further lab evaluation could be pursued if warranted based on clinical findings. Pelvis X-Ray 09/13/24 09:12 IMPRESSION: No acute findings. See above All radiology interpretation(s) finalized by discharge Discharge Plan Discharge Patient Disposition: Home Clinical Impression: Fall, Back contusion, Contusion of knee Condition: Stable Prescriptions: No Action alendronate 70 mg tablet 70 mg PO DAILY Rx Instructions: 1 tab PO WEEKLY atorvastatin 40 mg tablet 40 mg PO DAILY spironolactone 25 mg tablet 25 mg PO DAILY azelastine 137 mcg (0.1 %) aerosol,spray 2 spray intranasal BID Rx Instructions: administer into each nostril fluticasone propion-salmeterol [Advair Diskus] 250-50 mcg/dose blister with device 1 inh inhalation BID albuterol sulfate [ProAir HFA] 90 mcg/actuation HFA aerosol inhaler 2 puff inhalation Q6H PRN (Reason: Dyspnea) mirtazapine [Remeron] 15 mg tablet 15 mg PO DAILY quetiapine [Seroquel] 100 mg tablet 100 mg PO DAILY pantoprazole 40 mg tablet,delayed release (DR/EC) 40 mg PO DAILY metoprolol tartrate 50 mg tablet 50 mg PO BID memantine 10 mg tablet 10 mg PO BID Discharge Orders: Discharge ED (Routine); Ordered 09/13/24 Ordered By: London Joshua Referrals: Malena Stafford MD [Primary Care Provider] - Discharge Diet: Advance as tolerated Discharge Activity: Resume usual activity Patient Instructions: Knee Pain (ED), Back Pain (ED) Print Language: Turkish Coding Level of Care Code ED 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
[2024-09-13] MEDS: HYDROcodone-acetaminophen 5-325 mg Tablet 1 TAB PO (09:40)
[2024-09-13 11:11] VITALS: BP 137/98; PULSE 60; O2SAT 99
== END 2024-09-13 11:12 | disposition home or self-care (01) ==
PROVIDERS: Emergency Provider Emergency Medicine; PCP Family Medicine
DX: S30.0XXA Contusion of lower back and pelvis, initial encounter (principal); S80.02XA Contusion of left knee, initial encounter; S80.01XA Contusion of right knee, initial encounter; W10.9XXA Fall (on) (from) unspecified stairs and steps, initial encounter
CPT/HCPCS: 72131; 72170; 73562; 99284; J9999

== ENCOUNTER → 2024-10-06 09:57 | Outpatient (BNVA) | payer MEDICARE, MEDICAID, SELFPAY | PROVIDERS: PCP Family Medicine; Visit Provider Podiatrist Foot & Ankle Surgery | DX: L60.8 Other nail disorders (principal) | CPT/HCPCS: 99213 ==

== ENCOUNTER → 2024-10-22 08:10 | Outpatient (BNVA) | payer MEDICARE, MEDICAID, SELFPAY | PROVIDERS: PCP Family Medicine; Visit Provider Podiatrist Foot & Ankle Surgery | DX: L60.3 Nail dystrophy (principal); I73.9 Peripheral vascular disease, unspecified | CPT/HCPCS: 11750; J9999 ==

== ENCOUNTER → 2024-11-05 07:19 | Outpatient (BNVA) | payer MEDICARE, MEDICAID, SELFPAY | PROVIDERS: PCP Family Medicine; Visit Provider Podiatrist Foot & Ankle Surgery | DX: L60.8 Other nail disorders (principal); I73.9 Peripheral vascular disease, unspecified; L60.3 Nail dystrophy | CPT/HCPCS: 11750; 99213; J9999 ==